=== PATIENT | male | born 1945 | race Caucasian/White ===

== ENCOUNTER 2021-01-18 08:39 | Outpatient (CLI) | payer MEDICARE, OTHER ==
[2021-01-12 16:58] LABS: ALBUMIN 3.5 G/DL (3.4-5.0); ANION GAP 11 (8-16); BLOOD UREA NITROGEN 24 MG/DL (7-18); BUN/CREATININE RATIO 20.7 (5.4-32.0); CALCIUM 9.1 MG/DL (8.5-10.1); CHLORIDE 101 MMOL/L (99-107); CREATININE 1.16 MG/DL (0.60-1.10); GLUCOSE 98 MG/DL (70-104); POTASSIUM 4.2 MMOL/L (3.5-5.1); SODIUM 141 MMOL/L (135-145); TOTAL CARBON DIOXIDE 29.2 MMOL/L (24-32); eGFR 62 ML/MIN
[2021-01-12 17:12] LABS: HEMOGLOBIN 13.9 g/dl (14.0-17.9); NEUTROPHILS # (AUTO) 5.1 X10'3 (1.8-7.7)
[2021-01-12 17:14] LABS: BASOPHILS % (AUTO) 0.5 % (0-1); EOSINOPHILS # (AUTO) 0.4 X10'3 (0-0.9); EOSINOPHILS % (AUTO) 5.7 % (0-6); HEMATOCRIT 41.6 % (42.0-52.0); LYMPHOCYTES # (AUTO) 1.3 X10'3 (1.1-4.8); MEAN CORPUSCULAR HEMOGLOBIN 30.8 PG (27.0-31.0); MEAN CORPUSCULAR HGB CONC 33.5 g/dL (33.0-36.5); MEAN CORPUSCULAR VOLUME 92.1 FL (78-98); MEAN PLATELET VOLUME 7.9 FL (7.4-10.4); MONOCYTES # (AUTO) 0.6 X10'3 (0-0.9); MONOCYTES % (AUTO) 7.6 % (2-12); NEUTROPHILS % (AUTO) 68.2 % (42-75); PLATELET COUNT 213 X10'3 (140-440); RED BLOOD COUNT 4.52 X10'6 (4.70-6.10); RED CELL DISTRIBUTION WIDTH 15.9 % (11.5-14.5); WHITE BLOOD COUNT 7.5 X10'3 (4.5-11.0)
[~2021-01-18] VITALS: Ht 167.6 cm; Wt 70.3 kg
[2021-01-18] MEDS ORDERED: iohexol 350 MG/ML 50ML vial IV ONE (09:05)
[2021-01-18] MEDS ORDERED: iohexol 350MG/ML 100ml bottle IV ONE (09:06)
== END 2021-01-18 23:59 | disposition home or self-care (01) ==
LOC: 64 CT 08:39
PROVIDERS: ATTEND Family Medicine
DX: I77.1 Stricture of artery (principal); N40.0 Benign prostatic hyperplasia without lower urinary tract symptoms; I77.819 Aortic ectasia, unspecified site; I70.0 Atherosclerosis of aorta; I70.202 Unspecified atherosclerosis of native arteries of extremities, left leg; M47.816 Spondylosis without myelopathy or radiculopathy, lumbar region
CPT/HCPCS: 36415; 73706; 80048; 85025; 85651; 86332; Q9967

== ENCOUNTER 2021-03-23 06:56 | Inpatient (IN) | payer MEDICARE, OTHER ==
[2021-03-22 09:19] LABS: BASOPHILS # (AUTO) 0.1 X10'3 (0-0.2); BASOPHILS % (AUTO) 1.6 % (0-1); EOSINOPHILS # (AUTO) 0.3 X10'3 (0-0.9); EOSINOPHILS % (AUTO) 5.7 % (0-6); HEMATOCRIT 40.7 % (42.0-52.0); HEMOGLOBIN 14.2 g/dl (14.0-17.9); LYMPHOCYTES # (AUTO) 1.3 X10'3 (1.1-4.8); LYMPHOCYTES % (AUTO) 22.5 % (21-51); MEAN CORPUSCULAR HEMOGLOBIN 31.5 PG (27.0-31.0); MEAN PLATELET VOLUME 7.3 FL (7.4-10.4); MONOCYTES # (AUTO) 0.5 X10'3 (0-0.9); MONOCYTES % (AUTO) 8.8 % (2-12); NEUTROPHILS # (AUTO) 3.5 X10'3 (1.8-7.7); NEUTROPHILS % (AUTO) 61.4 % (42-75); PLATELET COUNT 280 X10'3 (140-440); RED BLOOD COUNT 4.52 X10'6 (4.70-6.10); RED CELL DISTRIBUTION WIDTH 15.4 % (11.5-14.5); WHITE BLOOD COUNT 5.8 X10'3 (4.5-11.0)
[2021-03-22 09:22] LABS: ALBUMIN 3.4 G/DL (3.4-5.0); ANION GAP 7 (8-16); BLOOD UREA NITROGEN 20 MG/DL (7-18); BUN/CREATININE RATIO 14.6 (5.4-32.0); CALCIUM 9.3 MG/DL (8.5-10.1); CHLORIDE 102 MMOL/L (99-107); CREATININE 1.37 MG/DL (0.60-1.10); GLUCOSE 87 MG/DL (70-104); SODIUM 141 MMOL/L (135-145); TOTAL CARBON DIOXIDE 32.3 MMOL/L (24-32); eGFR 51 ML/MIN
[2021-03-22 09:24] LABS: PARTIAL THROMBOPLASTIN TIME 30 SECONDS (22-32)
[~2021-03-23] VITALS: Ht 170.2 cm; Wt 69.6 kg
[2021-03-23] VITALS (12 sets, daily range): BP systolic 101–142; BP diastolic 49–91
[2021-03-23] MEDS ORDERED: nitroGLYCERIN 0.4mg SUBLingual tab SL PRN ×2 (07:35→14:05)
[2021-03-23] MEDS ORDERED: LORazepam 0.5 MG tablet PO PRN (07:40)
[2021-03-23] MEDS ORDERED: diphenhydrAMINE 25mg capsule PO PRN ×2 (07:40→11:30)
[2021-03-23] MEDS ORDERED: sodium bicarbonate (8.4%) inj. 150 ML in dextrose 5%-water 1,000 ML IV ONE (07:40)
[2021-03-23] MEDS ORDERED: LIDOcaine/PRILOcaine 5gm cream TP ONE (07:40)
[2021-03-23] MEDS ORDERED: HYDR12.55 PO (07:44)
[2021-03-23] MEDS ORDERED: NITR0.4T48 (07:44)
[2021-03-23] MEDS ORDERED: MELA10TA PO (07:44)
[2021-03-23] MEDS ORDERED: FEXO-25 PO (07:44)
[2021-03-23] MEDS ORDERED: BUPR300T86 PO (07:44)
[2021-03-23] MEDS ORDERED: HYDR-3964 PO (07:44)
[2021-03-23] MEDS ORDERED: ASPI-10 PO (07:44)
[2021-03-23] MEDS ORDERED: FLO0.4C PO (07:44)
[2021-03-23] MEDS ORDERED: ATOR-2 PO (07:44)
[2021-03-23] MEDS: acetylcysteine 200 MG/ml 4ml vial PO SCH ×2 (08:14→20:00)
[2021-03-23] MEDS: normal saline 1,000 ML IV SCH ×3 (08:19→16:26)
[2021-03-23] MEDS ORDERED: verapamil 2.5 mg/ml inj IV ONE (09:10)
[2021-03-23] MEDS ORDERED: nitroGLYCERIN-Tridil 50MG/D5W 250 ML IV ONE (09:10)
[2021-03-23] MEDS ORDERED: iohexol 350 MG/ML 50ML vial IV ONE (09:10)
[2021-03-23] MEDS ORDERED: midazolam 1 mg/ML 2ml injection ONE (09:10)
[2021-03-23] MEDS ORDERED: fentaNYL/PF 50MCG/1 ML 2ML syringe ONE (09:10)
[2021-03-23] MEDS ORDERED: heparin 1,000unit/ml 10ml vial 10 ML ONE (09:10)
[2021-03-23] MEDS ORDERED: iohexol 350MG/ML 100ml bottle IV ONE (09:10)
[2021-03-23] MEDS ORDERED: LIDOcaine 1% (10mg/ml)w/preservative injection 20ml MDV ONE (09:11)
[2021-03-23] MEDS: sodium bicarbonate (8.4%) inj. 50 MEQ in dextrose 5%-water 1,000 ML IV SCH ×2 (10:55→16:27)
[2021-03-23 10:56] LABS: ISTAT Hct MIX 35 %PCV (42-52); ISTAT O2 SATURATION MIX VENOUS 67 % (60-80); ISTAT SOURCE VEN
[2021-03-23] MEDS ORDERED: potassium CL 10mEq/100ml bag 100 ML IV PRN (11:30)
[2021-03-23] MEDS ORDERED: potassium Cl 20mEq/100mL bag 100 ML IV PRN (11:30)
[2021-03-23] MEDS ORDERED: ondansetron 4mg rapidly disintigrating tab PO PRN (11:30)
[2021-03-23] MEDS ORDERED: potassium Cl 40MEQ/1/2NS 520ml 520 ML IV PRN (11:30)
[2021-03-23] MEDS ORDERED: potassium Cl 20 mEq SR tablet PO PRN (11:30)
[2021-03-23] MEDS ORDERED: magnesium 2GM in 50ml NS 50 ML IV PRN (11:30)
[2021-03-23] MEDS ORDERED: magnesium 4gm in 100ml NS 100 ML IV PRN (11:30)
[2021-03-23] MEDS ORDERED: potassium Cl 40MEQ/250ML bag 250 ML IV PRN (11:30)
[2021-03-23] MEDS ORDERED: MESSAGE TO NURSING PO ONE ×5 (11:30→16:55)
[2021-03-23] MEDS ORDERED: HYDROcodone/acetaminophen 5mg/325mg tablet PO PRN (14:05)
[2021-03-23] MEDS ORDERED: NITR0.4T51 SL (14:06)
[2021-03-23 14:52] LABS: ISTAT HGB ART 13.6 g/dl (14.0-18.0); ISTAT Hct ART 40 %PCV (42-52); ISTAT O2 SATURATION ARTERIAL 87 % (95-98); ISTAT SOURCE ART
--- NOTE | 2021-03-23 16:00 | NUR ---
Patient in room PCU 3020. I have received report from Elaina ARCE and had the opportunity to ask questions and assume patient care.
[2021-03-23 16:49] LABS: BASOPHILS % (AUTO) 0.6 % (0-1); EOSINOPHILS # (AUTO) 0.4 X10'3 (0-0.9); EOSINOPHILS % (AUTO) 5.9 % (0-6); HEMATOCRIT 37.6 % (42.0-52.0); HEMOGLOBIN 12.6 g/dl (14.0-17.9); LYMPHOCYTES # (AUTO) 1.4 X10'3 (1.1-4.8); LYMPHOCYTES % (AUTO) 21.6 % (21-51); MEAN CORPUSCULAR HEMOGLOBIN 30.3 PG (27.0-31.0); MEAN CORPUSCULAR HGB CONC 33.6 g/dL (33.0-36.5); MEAN CORPUSCULAR VOLUME 90.3 FL (78-98); MEAN PLATELET VOLUME 7.5 FL (7.4-10.4); MONOCYTES # (AUTO) 0.7 X10'3 (0-0.9); MONOCYTES % (AUTO) 11.3 % (2-12); NEUTROPHILS # (AUTO) 3.9 X10'3 (1.8-7.7); NEUTROPHILS % (AUTO) 60.6 % (42-75); PLATELET COUNT 244 X10'3 (140-440); RED BLOOD COUNT 4.16 X10'6 (4.70-6.10); RED CELL DISTRIBUTION WIDTH 15.5 % (11.5-14.5); WHITE BLOOD COUNT 6.4 X10'3 (4.5-11.0)
[2021-03-23] MEDS ORDERED: Insulin Reg/NS 100units/100mL 100 ML IV SCH ×2 (16:55→17:01)
[2021-03-23] MEDS ORDERED: insulin glargine (Lantus) pen - multi-dose SQ PRN (16:55)
[2021-03-23] MEDS ORDERED: dextrose 50%-water 50ml dispensing syringe IV PRN (16:55)
[2021-03-23 16:58] LABS: ALBUMIN 2.8 G/DL (3.4-5.0); ANION GAP 7 (8-16); BLOOD UREA NITROGEN 21 MG/DL (7-18); BUN/CREATININE RATIO 17.1 (5.4-32.0); CALCIUM 8.5 MG/DL (8.5-10.1); CHLORIDE 101 MMOL/L (99-107); CREATININE 1.23 MG/DL (0.60-1.10); GLUCOSE 97 MG/DL (70-104); MAGNESIUM 2.3 MG/DL (1.5-2.4); POTASSIUM 3.6 MMOL/L (3.5-5.1); SODIUM 140 MMOL/L (135-145); TOTAL CARBON DIOXIDE 31.6 MMOL/L (24-32); eGFR 58 ML/MIN
[2021-03-23 17:02] LABS: PARTIAL THROMBOPLASTIN TIME 27 SECONDS (22-32)
[2021-03-23 17:05] LABS: HEMOGLOBIN A1C 5.6 % (4.5-6.2)
[2021-03-23] MEDS ORDERED: ALBUTEROL INHALER 1 PUFF/90 MCG INHALER IH PRN (17:10)
[2021-03-23] MEDS ORDERED: ringers solution, lacted 1,000 ML IV ONE (17:10)
--- NOTE | 2021-03-23 17:19 | NUR ---
Paged Respiratory PCU rm 3020, Daron Murrieta Cardiac Surgeon would like Respiratory to give Albuterol now and in the am at 0700 prior to surgery. Also during the night as needed. Deanna ARCE [phone]
--- NOTE | 2021-03-23 17:44 | NUR ---
PFT being completed now.
[2021-03-23] MEDS ORDERED: albuterol 2.5 MG/3 ML nebule NEB ONE ×2 (17:50→21:30)
--- NOTE | 2021-03-23 18:00 | NUR ---
Paged Resp. [facility] rm [id number] Vidal wants patient to have albuterol neb treatment now. Thank you Deanna ARCE [phone]
[2021-03-23 18:01] LABS: ABG BASE EXCESS 7.2 mmol/L (-2.0-2.0); ABG HCO3 31.9 mmol/L (22.0-26.0); ABG OXYGEN SATURATION 94.1 % (94-97); ABG PCO2 (T) 45.3 mmHg (35.0-48.0); ABG PO2 (T) 66.3 mmHg (75.0-100.0); ALLEN'S TEST POSITIVE; FCOHb 1.7 % (0.0-3.9); FLOW 3 L/min; FMetHb 0.2 % (0.0-1.5); FO2Hb 92.3 % (94-97); TOTAL HEMOGLOBIN 13.4 G/dl (14.0-18.0)
--- NOTE | 2021-03-23 18:20 | NUR ---
Problems reprioritized. Patient report given, questions answered & plan of care reviewed with Linette ARCE.
[2021-03-23] MEDS ORDERED: mupirocin 2% nasal ointment 1gm UD NS SCH (20:00)
[2021-03-23] MEDS ORDERED: sod chloride 0.9% 10ml flush syringe IV SCH (20:00)
[2021-03-23] MEDS: sod chloride 0.9% 10ml flush syringe IV SCH (20:00)
[2021-03-23] MEDS ORDERED: [UNRECOGNIZED DRUG - REMARK] PO SCH (20:00)
[2021-03-23] MEDS: tamsulosin 0.4mg capsule PO SCH (21:27)
[2021-03-23] MEDS: atorvastatin 10mg tablet PO SCH (21:27)
[2021-03-23] MEDS: Melatonin 3mg tablet PO SCH (21:28)
[2021-03-23] MEDS: metoprolol tartrate 12.5mg (1/2 tablet) PO SCH (21:28)
[2021-03-24] VITALS (19 sets, daily range): BP systolic 105–130; BP diastolic 47–90
[2021-03-24] MEDS: sodium bicarbonate (8.4%) inj. 50 MEQ in dextrose 5%-water 1,000 ML IV SCH ×4 (00:55→21:55)
[2021-03-24] MEDS ORDERED: MALTODEXTRIN/FRUCTOSE 0.68 KCAL/ML LIQUID 296ML BOTTLE PO ONE (05:00)
[2021-03-24] MEDS ORDERED: vancomycin/NS 1 GM ADD-VANTAGE 250 ML IV ONE (05:30)
[2021-03-24] MEDS: Insulin Reg/NS 100units/100mL 100 ML IV SCH ×2 (05:30→12:08)
[2021-03-24] MEDS ORDERED: gabapentin 400mg capsule PO ONE (05:30)
[2021-03-24] MEDS ORDERED: cefazolin/dext.iso 2gm/50ml 50 ML IV ONE (05:30)
[2021-03-24] MEDS ORDERED: epiNEPHrine 1 mg/ml inj ONE (05:31)
[2021-03-24] MEDS ORDERED: BUPIVAcaine 0.5% inj/PF 30 ML ONE (05:32)
[2021-03-24] MEDS ORDERED: ceFAZolin 1000mg inj ONE (05:32)
[2021-03-24] MEDS ORDERED: LIDOcaine 1% (10mg/ml) 2ml vial ONE (05:33)
[2021-03-24] MEDS ORDERED: famotidine 20mg tablet PO ONE (06:00)
[2021-03-24] MEDS ORDERED: LORazepam 2 mg/ml vial IV ONE (06:00)
--- NOTE | 2021-03-24 06:05 | NUR ---
Patient in room PCU 3020. I have received report from Linette ARCE and had the opportunity to ask questions and assume patient care.
--- NOTE | 2021-03-24 06:06 | NUR ---
Problems reprioritized. Patient report given, questions answered & plan of care reviewed with CLAUDE Wesley.
[2021-03-24] MEDS ORDERED: NORepinephrine 8 MG in NS 250 ML BAG (32 mcg/ml) IV ONE (07:00)
[2021-03-24] MEDS ORDERED: sodium bicarbonate (8.4%) inj. 1 MEQ/ML ML ONE (07:00)
[2021-03-24] MEDS ORDERED: aminocaproic acid 250 MG/1 ML inj. ONE (07:00)
[2021-03-24] MEDS ORDERED: phenylephrine 10mg/ml inj. ONE ×2 (07:00→08:11)
[2021-03-24] MEDS ORDERED: calcium chloride 100 MG/1 ML inj IV ONE (07:00)
[2021-03-24] MEDS ORDERED: heparin 10,000 units/1 ML INJ ONE (07:00)
[2021-03-24] MEDS ORDERED: methylPREDNISolone sod succ 1000mg vial ONE (07:00)
[2021-03-24] MEDS ORDERED: albumin (human) 25% 100 ML IV solution IV ONE (07:00)
--- NOTE | 2021-03-24 07:15 | NUR ---
Pt taken down to CVOR by OR team by bed.
[2021-03-24] MEDS ORDERED: isoflurane 100ml inhalation liquid IH ONE (07:17)
[2021-03-24] MEDS ORDERED: DOPamine/D5W 400mg/250ml bag IV ONE (07:17)
[2021-03-24] MEDS ORDERED: SUFENTANIL CITRATE 50 MCG/ML 2ml ampule IV ONE (07:30)
[2021-03-24] MEDS ORDERED: LORazepam 2 mg/ml vial ONE (07:31)
[2021-03-24] MEDS ORDERED: rocuronium 10mg/ml inj IV ONE (07:55)
[2021-03-24] MEDS ORDERED: propofol inj 20 ML IV ONE (07:55)
[2021-03-24] MEDS ORDERED: LIDOcaine 2% (20mg/ml) 5ml vial ONE (07:55)
[2021-03-24] MEDS: buPROPion SR 150mg tablet PO SCH ×2 (08:00→20:00)
[2021-03-24] MEDS: metoprolol tartrate 12.5mg (1/2 tablet) PO SCH ×2 (08:00→20:00)
[2021-03-24] MEDS: HYDROchlorothiazide 12.5mg capsule PO SCH (08:00)
[2021-03-24] MEDS: aspirin 325mg tablet PO SCH (08:00)
[2021-03-24] MEDS: acetylcysteine 200 MG/ml 4ml vial PO SCH ×2 (08:00→20:00)
[2021-03-24] MEDS ORDERED: non-formulary drug (Atorvastatin Calcium 1 TAB) PO SCH (08:00)
[2021-03-24] MEDS: sod chloride 0.9% 10ml flush syringe IV SCH ×2 (08:00→20:10)
[2021-03-24 08:13] LABS: ACT @ 1.70 U 307 SEC (193-297); ACT @ 2.84 U 414 SEC (260-420); BASELINE ACT 145 SEC (101-148); PATIENT WEIGHT 67.8k KG
[2021-03-24 08:15] LABS: ABG BASE EXCESS 2.6 mmol/L (-2.0-2.0); ABG HCO3 28.7 mmol/L (22.0-26.0); ABG OXYGEN SATURATION 99.2 % (94-97); ABG PCO2 (T) 50.8 mmHg (35.0-48.0); FCOHb 0.1 % (0.0-3.9); FMetHb 0.3 % (0.0-1.5); FO2Hb 98.8 % (94-97)
[2021-03-24] MEDS ORDERED: papaverine 30 mg/ml 2ml inj. IA ONE (08:25)
[2021-03-24] MEDS ORDERED: heparin 10,000 units/1 ML INJ IR ONE (08:26)
[2021-03-24 08:59] LABS: ABG HCO3 29.7 mmol/L (22.0-26.0); ABG PCO2 39.7 mmHg (35.0-48.0); ABG PO2 367.6 mmHg (75.0-100.0); CL (ABG) 100 mmol/L (98-110); GLUCOSE (ABG) 91 mg/dl (70-105); IONIZED CA (ABG) 0.97 mmol/L (1.10-1.43); K (ABG) 4.1 mmol/L (3.5-5.0)
[2021-03-24] MEDS ORDERED: ipratropium/albuterol 3ml nebule IH PRN (09:00)
[2021-03-24] MEDS ORDERED: CISatracurium **Bolus** 2 mg/ml inj IV ONE (09:10)
[2021-03-24 09:48] LABS: ACTIVATED CLOTTING TIME 113 SEC (101-148)
[2021-03-24] MEDS ORDERED: potassium Cl 40MEQ/250ML bag 250 ML IV PRN (09:50)
[2021-03-24] MEDS ORDERED: sodium phosphate inj. 15 MMOL in dextrose 5%-water 250 ML IV PRN (09:50)
[2021-03-24] MEDS ORDERED: niCARDipine-NS 40mg/200ml IVPB 200 ML IV PRN (09:50)
[2021-03-24] MEDS ORDERED: acetaminophen 325mg tablet PO PRN ×2 (09:50)
[2021-03-24] MEDS ORDERED: dextrose 50%-water 50ml dispensing syringe IV PRN (09:50)
[2021-03-24] MEDS ORDERED: potassium Cl 40MEQ/1/2NS 520ml 520 ML IV PRN (09:50)
[2021-03-24] MEDS ORDERED: nitroGLYCERIN-Tridil 50MG/D5W 250 ML IV SCH (09:50)
[2021-03-24] MEDS: sodium chloride 0.45% 1,000 ML IV SCH (09:50)
[2021-03-24] MEDS ORDERED: Insulin Reg/NS 100units/100mL 100 ML IV SCH (09:50)
[2021-03-24] MEDS ORDERED: potassium CL 10mEq/100ml bag 100 ML IV PRN (09:50)
[2021-03-24] MEDS ORDERED: insulin glargine (Lantus) pen - multi-dose SQ PRN (09:50)
[2021-03-24] MEDS ORDERED: pantoprazole 40 MG vial IV ONE (09:50)
[2021-03-24] MEDS ORDERED: metoclopramide 5 mg/ml inj IV PRN (09:50)
[2021-03-24] MEDS ORDERED: NORepinephrine 8mg/ 250ml NS 250 ML IV PRN (09:50)
[2021-03-24] MEDS ORDERED: mineral oil 133ml enema RC PRN (09:50)
[2021-03-24] MEDS ORDERED: magnesium 2GM in 50ml NS 50 ML IV PRN (09:50)
[2021-03-24] MEDS ORDERED: magnesium hydroxide 30ml (MOM) UD suspension PO PRN (09:50)
[2021-03-24] MEDS ORDERED: bisacodyl 10mg suppository rectal RC PRN (09:50)
[2021-03-24] MEDS ORDERED: sodium phosphate inj. 30 MMOL in dextrose 5%-water 250 ML IV PRN (09:50)
[2021-03-24] MEDS ORDERED: ondansetron/PF 4mg/2ml inj IV PRN (09:50)
[2021-03-24] MEDS ORDERED: magnesium 4gm in 100ml NS 100 ML IV PRN (09:50)
[2021-03-24] MEDS ORDERED: potassium Cl 20 mEq SR tablet PO PRN (09:50)
[2021-03-24] MEDS ORDERED: magnesium citrate 296ml oral solution PO PRN (09:50)
[2021-03-24] MEDS ORDERED: Neutra Phos packet PO PRN (09:50)
[2021-03-24] MEDS ORDERED: MESSAGE TO NURSING PO ONE (10:00)
[2021-03-24] MEDS: DOBUTamine-DoBUTrex 500mg/D5W 250 ML IV SCH (10:10)
--- NOTE | 2021-03-24 10:10 | NUR ---
Received to room 2041, accompanied by MDs and surgical crew. Placed on ventilator, to property assessment monitor, arterial line and PA line pressure monitored. Chest tubes to suction at 20 cm. Lopez cath to gravity drainage. Dressings are dry and intact. See assessment record. All vasoactive drugs are infusing via central line.
--- NOTE | 2021-03-24 10:22 | NUR ---
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 Will continue to follow. Addendum: 03/24/21 at [address] Amended: Links added.
[2021-03-24 10:40] LABS: BASOPHILS # (AUTO) 0.1 X10'3 (0-0.2); BASOPHILS % (AUTO) 0.6 % (0-1); EOSINOPHILS # (AUTO) 0.2 X10'3 (0-0.9); EOSINOPHILS % (AUTO) 2.2 % (0-6); HEMATOCRIT 31.9 % (42.0-52.0); LYMPHOCYTES # (AUTO) 0.7 X10'3 (1.1-4.8); MEAN CORPUSCULAR HEMOGLOBIN 30.8 PG (27.0-31.0); MEAN CORPUSCULAR HGB CONC 34.6 g/dL (33.0-36.5); MEAN CORPUSCULAR VOLUME 89.1 FL (78-98); MEAN PLATELET VOLUME 7.3 FL (7.4-10.4); MONOCYTES # (AUTO) 0.4 X10'3 (0-0.9); MONOCYTES % (AUTO) 4.6 % (2-12); NEUTROPHILS % (AUTO) 85.6 % (42-75); PLATELET COUNT 170 X10'3 (140-440); RED BLOOD COUNT 3.58 X10'6 (4.70-6.10); RED CELL DISTRIBUTION WIDTH 15.2 % (11.5-14.5); WHITE BLOOD COUNT 9.3 X10'3 (4.5-11.0)
[2021-03-24 10:49] LABS: ALANINE AMINOTRANSFERASE 16 U/L (12-78); ALBUMIN 2.7 G/DL (3.4-5.0); ALBUMIN/GLOBULIN RATIO 0.8 (1.1-1.5); ALKALINE PHOSPHATASE 58 IU/L (46-116); ANION GAP 6 (8-16); ASPARTATE AMINO TRANSFERASE 20 U/L (10-37); BILIRUBIN,TOTAL 0.7 MG/DL (0.1-1.0); BLOOD UREA NITROGEN 19 MG/DL (7-18); CALCIUM 8.4 MG/DL (8.5-10.1); CHLORIDE 106 MMOL/L (99-107); GLUCOSE 113 MG/DL (70-104); PHOSPHORUS 2.5 MG/DL (2.3-4.5); POTASSIUM 3.7 MMOL/L (3.5-5.1); SODIUM 140 MMOL/L (135-145); TOTAL CARBON DIOXIDE 27.7 MMOL/L (24-32); TOTAL PROTEIN 5.9 G/DL (6.4-8.2); eGFR 73 ML/MIN
[2021-03-24 11:09] LABS: ABG BASE EXCESS 0.6 mmol/L (-2.0-2.0); ABG HCO3 25.6 mmol/L (22.0-26.0); ABG OXYGEN SATURATION 97.9 % (94-97); ABG PCO2 (T) 41.9 mmHg (35.0-48.0); ABG PO2 (T) 125.5 mmHg (75.0-100.0); FCOHb 0.5 % (0.0-3.9); FMetHb 0.1 % (0.0-1.5); FO2Hb 97.3 % (94-97); PATIENT TEMPERATURE 36.5; PEEP 5 cm H2O; RESPIRATORY RATE 12 b/min; TIDAL VOLUME 700 mL; TOTAL HEMOGLOBIN 11.8 G/dl (14.0-18.0)
[2021-03-24] MEDS: potassium Cl 20mEq/100mL bag 100 ML IV PRN ×3 (11:11→17:43)
[2021-03-24 11:26] LABS: PARTIAL THROMBOPLASTIN TIME 27 SECONDS (22-32)
[2021-03-24] MEDS: gabapentin 300mg capsule PO SCH ×2 (12:20→20:54)
[2021-03-24] MEDS: albumin (Human) 5% 250ml 250 ML IV PRN ×3 (12:21→15:18)
[2021-03-24] MEDS: ceFAZolin/D5W- 1GM premix 50 ML IV SCH (15:18)
[2021-03-24 15:59] LABS: ABG BASE EXCESS -2.8 mmol/L (-2.0-2.0); ABG HCO3 22.7 mmol/L (22.0-26.0); ABG OXYGEN SATURATION 93.5 % (94-97); ABG PCO2 (T) 41.2 mmHg (35.0-48.0); ABG PO2 (T) 74.1 mmHg (75.0-100.0); FMetHb 0.2 % (0.0-1.5); FO2Hb 93.3 % (94-97); PATIENT TEMPERATURE 36.4; PEEP 5 cm H2O; TOTAL HEMOGLOBIN 11.3 G/dl (14.0-18.0)
[2021-03-24 16:35] LABS: ALBUMIN 3.4 G/DL (3.4-5.0); ANION GAP 9 (8-16); BASOPHILS % (AUTO) 0.2 % (0-1); BLOOD UREA NITROGEN 17 MG/DL (7-18); BUN/CREATININE RATIO 14.5 (5.4-32.0); CALCIUM 7.9 MG/DL (8.5-10.1); CHLORIDE 110 MMOL/L (99-107); CREATININE 1.17 MG/DL (0.60-1.10); EOSINOPHILS % (AUTO) 0.1 % (0-6); GLUCOSE 95 MG/DL (70-104); HEMATOCRIT 31.3 % (42.0-52.0); HEMOGLOBIN 10.6 g/dl (14.0-17.9); LYMPHOCYTES # (AUTO) 0.2 X10'3 (1.1-4.8); LYMPHOCYTES % (AUTO) 2.4 % (21-51); MEAN CORPUSCULAR HEMOGLOBIN 30.7 PG (27.0-31.0); MEAN CORPUSCULAR HGB CONC 33.7 g/dL (33.0-36.5); MEAN CORPUSCULAR VOLUME 91.1 FL (78-98); MONOCYTES # (AUTO) 0.3 X10'3 (0-0.9); MONOCYTES % (AUTO) 3.2 % (2-12); NEUTROPHILS # (AUTO) 9.2 X10'3 (1.8-7.7); NEUTROPHILS % (AUTO) 94.1 % (42-75); PHOSPHORUS 2.3 MG/DL (2.3-4.5); PLATELET COUNT 150 X10'3 (140-440); RED BLOOD COUNT 3.43 X10'6 (4.70-6.10); RED CELL DISTRIBUTION WIDTH 15.2 % (11.5-14.5); SODIUM 144 MMOL/L (135-145); TOTAL CARBON DIOXIDE 24.8 MMOL/L (24-32); WHITE BLOOD COUNT 9.7 X10'3 (4.5-11.0); eGFR 61 ML/MIN
[2021-03-24 16:36] LABS: POTASSIUM 4.3 MMOL/L (3.5-5.1)
[2021-03-24] MEDS: morphine 4 MG/ML inj SYRINge IV PRN ×3 (17:43→22:35)
--- NOTE | 2021-03-24 18:30 | NUR ---
Dr. Townsend at bedside, placed oral airway. Pt somnolent with obstructive apnea, wakes and answers questions appropriately but immediately falls back asleep.
[2021-03-24] MEDS: ipratropium/albuterol 3ml nebule NEB SCH ×2 (19:15→23:04)
[2021-03-24] MEDS ORDERED: acetaminophen 1,000mg/100ml IV 100 ML IV PRN (19:40)
[2021-03-24] MEDS: sennosides/docusate sodium tablet PO SCH (20:00)
[2021-03-24] MEDS: vancomycin/NS 1 GM ADD-VANTAGE 250 ML IV SCH (20:09)
--- NOTE | 2021-03-24 20:31 | NUR ---
A-line DC'd, positional and not drawing
[2021-03-24] MEDS: atorvastatin 10mg tablet PO SCH (20:54)
[2021-03-24] MEDS: tamsulosin 0.4mg capsule PO SCH (20:54)
[2021-03-24] MEDS: Melatonin 3mg tablet PO SCH (20:54)
[2021-03-24] MEDS: mupirocin 2% nasal ointment 1gm UD NS SCH (20:56)
[2021-03-24] MEDS ORDERED: atorvastatin 10mg tablet PO SCH (21:00)
[2021-03-25] VITALS (23 sets, daily range): BP systolic 90–140; BP diastolic 43–80
[2021-03-25] MEDS: ceFAZolin/D5W- 1GM premix 50 ML IV SCH ×4 (00:43→23:12)
[2021-03-25 01:40] LABS: BASOPHILS % (AUTO) 0.1 % (0-1); EOSINOPHILS % (AUTO) 0 % (0-6); HEMATOCRIT 32.3 % (42.0-52.0); LYMPHOCYTES # (AUTO) 0.4 X10'3 (1.1-4.8); LYMPHOCYTES % (AUTO) 3.3 % (21-51); MEAN CORPUSCULAR VOLUME 91.3 FL (78-98); MEAN PLATELET VOLUME 7.8 FL (7.4-10.4); MONOCYTES # (AUTO) 0.6 X10'3 (0-0.9); MONOCYTES % (AUTO) 5.5 % (2-12); NEUTROPHILS # (AUTO) 9.7 X10'3 (1.8-7.7); NEUTROPHILS % (AUTO) 91.1 % (42-75); PLATELET COUNT 146 X10'3 (140-440); RED BLOOD COUNT 3.54 X10'6 (4.70-6.10); RED CELL DISTRIBUTION WIDTH 15.4 % (11.5-14.5); WHITE BLOOD COUNT 10.7 X10'3 (4.5-11.0)
[2021-03-25 01:55] LABS: ALANINE AMINOTRANSFERASE 14 U/L (12-78); ALBUMIN 3.3 G/DL (3.4-5.0); ALKALINE PHOSPHATASE 66 IU/L (46-116); ANION GAP 7 (8-16); ASPARTATE AMINO TRANSFERASE 42 U/L (10-37); BILIRUBIN,TOTAL 0.7 MG/DL (0.1-1.0); BLOOD UREA NITROGEN 16 MG/DL (7-18); BUN/CREATININE RATIO 14.2 (5.4-32.0); CALCIUM 8.5 MG/DL (8.5-10.1); CHLORIDE 110 MMOL/L (99-107); CREATININE 1.13 MG/DL (0.60-1.10); GLUCOSE 116 MG/DL (70-104); MAGNESIUM 2.5 MG/DL (1.5-2.4); PHOSPHORUS 3.9 MG/DL (2.3-4.5); POTASSIUM 4.5 MMOL/L (3.5-5.1); SODIUM 143 MMOL/L (135-145); TOTAL CARBON DIOXIDE 26.5 MMOL/L (24-32); TOTAL PROTEIN 6.6 G/DL (6.4-8.2); eGFR 63 ML/MIN
[2021-03-25] MEDS: morphine 4 MG/ML inj SYRINge IV PRN ×4 (02:22→22:57)
[2021-03-25] MEDS: ipratropium/albuterol 3ml nebule NEB SCH ×3 (03:54→11:00)
[2021-03-25] MEDS: sodium bicarbonate (8.4%) inj. 50 MEQ in dextrose 5%-water 1,000 ML IV SCH ×2 (04:55→11:42)
[2021-03-25] MEDS: HYDROcodone/acetaminophen 10/325mg tab PO PRN ×4 (06:41→20:12)
[2021-03-25] MEDS ORDERED: ibuprofen tablet 400 MG TABLET PO PRN (07:40)
[2021-03-25] MEDS: normal saline 1,000 ML IV SCH (07:40)
[2021-03-25] MEDS: acetylcysteine 200 MG/ml 4ml vial PO SCH (07:41)
[2021-03-25] MEDS: metoprolol tartrate 12.5mg (1/2 tablet) PO SCH ×2 (07:47→20:15)
[2021-03-25] MEDS: mupirocin 2% nasal ointment 1gm UD NS SCH ×2 (07:47→20:00)
[2021-03-25] MEDS: gabapentin 300mg capsule PO SCH ×3 (07:47→20:13)
[2021-03-25] MEDS: vancomycin/NS 1 GM ADD-VANTAGE 250 ML IV SCH ×2 (07:47→19:59)
[2021-03-25] MEDS: aspirin 325mg tablet PO SCH (07:47)
[2021-03-25] MEDS: sennosides/docusate sodium tablet PO SCH ×2 (07:48→20:13)
[2021-03-25] MEDS: pantoprazole 40mg Tablet.DR PO SCH (07:48)
[2021-03-25] MEDS: buPROPion SR 150mg tablet PO SCH ×2 (07:48→20:13)
[2021-03-25] MEDS: sod chloride 0.9% 10ml flush syringe IV SCH (07:57)
[2021-03-25] MEDS ORDERED: aspirin 325mg tablet, delayed-release (Ecotrin) PO SCH (08:00)
[2021-03-25] MEDS ORDERED: metoprolol tartrate 12.5mg (1/2 tablet) PO SCH (08:00)
--- NOTE | 2021-03-25 08:00 | NUR ---
O2 saturation in the low 90s, Ousmane OHARA aware, patient with hx of COPD, continue pulmonary toilet.
[2021-03-25] MEDS: HYDROchlorothiazide 12.5mg capsule PO SCH (11:18)
[2021-03-25] MEDS ORDERED: ipratropium/albuterol 3ml nebule NEB PRN (13:20)
[2021-03-25] MEDS: Insulin Reg/NS 100units/100mL 100 ML IV SCH (13:46)
--- NOTE | 2021-03-25 15:09 | NUR ---
Decreased urine output noted; Ousmane OHARA notified; no new orders at this time. Encourage PO fluid intake.
--- NOTE | 2021-03-25 18:36 | NUR ---
Problems reprioritized. Patient report given, questions answered & plan of care reviewed with Lorelei RN.
[2021-03-25] MEDS: atorvastatin 10mg tablet PO SCH (20:11)
[2021-03-25] MEDS: tamsulosin 0.4mg capsule PO SCH (20:13)
[2021-03-25] MEDS: Melatonin 3mg tablet PO SCH (20:14)
[2021-03-26] VITALS (23 sets, daily range): BP systolic 93–140; BP diastolic 44–73
[2021-03-26 03:52] LABS: BASOPHILS % (AUTO) 0.1 % (0-1); EOSINOPHILS % (AUTO) 0 % (0-6); HEMOGLOBIN 10.6 g/dl (14.0-17.9); LYMPHOCYTES # (AUTO) 0.3 X10'3 (1.1-4.8); LYMPHOCYTES % (AUTO) 2.8 % (21-51); MEAN CORPUSCULAR HEMOGLOBIN 30.8 PG (27.0-31.0); MEAN CORPUSCULAR HGB CONC 33.2 g/dL (33.0-36.5); MEAN CORPUSCULAR VOLUME 92.6 FL (78-98); MEAN PLATELET VOLUME 8.3 FL (7.4-10.4); MONOCYTES # (AUTO) 0.6 X10'3 (0-0.9); MONOCYTES % (AUTO) 5.4 % (2-12); NEUTROPHILS # (AUTO) 10.6 X10'3 (1.8-7.7); NEUTROPHILS % (AUTO) 91.7 % (42-75); PLATELET COUNT 139 X10'3 (140-440); RED BLOOD COUNT 3.45 X10'6 (4.70-6.10); RED CELL DISTRIBUTION WIDTH 15.3 % (11.5-14.5); WHITE BLOOD COUNT 11.6 X10'3 (4.5-11.0)
[2021-03-26] MEDS: morphine 4 MG/ML inj SYRINge IV PRN ×2 (04:31→20:34)
[2021-03-26 04:53] LABS: ANION GAP 6 (8-16); BLOOD UREA NITROGEN 33 MG/DL (7-18); BUN/CREATININE RATIO 24.3 (5.4-32.0); CALCIUM 8.3 MG/DL (8.5-10.1); CHLORIDE 104 MMOL/L (99-107); CREATININE 1.36 MG/DL (0.60-1.10); GLUCOSE 149 MG/DL (70-104); MAGNESIUM 2.2 MG/DL (1.5-2.4); PHOSPHORUS 4.4 MG/DL (2.3-4.5); POTASSIUM 5.1 MMOL/L (3.5-5.1); SODIUM 139 MMOL/L (135-145); TOTAL CARBON DIOXIDE 28.9 MMOL/L (24-32); eGFR 51 ML/MIN
[2021-03-26] MEDS: sod chloride 0.9% 10ml flush syringe IV SCH ×3 (06:21→20:00)
[2021-03-26] MEDS: HYDROchlorothiazide 12.5mg capsule PO SCH (08:12)
[2021-03-26] MEDS: mupirocin 2% nasal ointment 1gm UD NS SCH (08:12)
[2021-03-26] MEDS: pantoprazole 40mg Tablet.DR PO SCH (08:13)
[2021-03-26] MEDS: metoprolol tartrate 12.5mg (1/2 tablet) PO SCH ×2 (08:13→20:36)
[2021-03-26] MEDS: sennosides/docusate sodium tablet PO SCH ×2 (08:14→20:37)
[2021-03-26] MEDS: buPROPion SR 150mg tablet PO SCH ×2 (08:14→20:37)
[2021-03-26] MEDS: gabapentin 300mg capsule PO SCH (08:14)
[2021-03-26] MEDS: aspirin 325mg tablet PO SCH (08:14)
[2021-03-26] MEDS: sodium chloride 0.45% 1,000 ML IV SCH ×2 (09:50→16:17)
[2021-03-26] MEDS ORDERED: furosemide 40mg/4ml inj IV ONE (10:15)
[2021-03-26] MEDS: Melatonin 3mg tablet PO SCH (20:36)
[2021-03-26] MEDS: tamsulosin 0.4mg capsule PO SCH (20:37)
[2021-03-26] MEDS: atorvastatin 10mg tablet PO SCH (20:37)
[2021-03-27] VITALS (14 sets, daily range): BP systolic 91–139; BP diastolic 48–67
[2021-03-27] MEDS: morphine 4 MG/ML inj SYRINge IV PRN (02:25)
[2021-03-27 03:53] LABS: BASOPHILS % (AUTO) 0.1 % (0-1); EOSINOPHILS % (AUTO) 0.2 % (0-6); HEMATOCRIT 31.9 % (42.0-52.0); HEMOGLOBIN 10.7 g/dl (14.0-17.9); LYMPHOCYTES # (AUTO) 0.7 X10'3 (1.1-4.8); LYMPHOCYTES % (AUTO) 7.7 % (21-51); MEAN CORPUSCULAR HEMOGLOBIN 31.1 PG (27.0-31.0); MEAN CORPUSCULAR HGB CONC 33.6 g/dL (33.0-36.5); MEAN CORPUSCULAR VOLUME 92.4 FL (78-98); MEAN PLATELET VOLUME 8.8 FL (7.4-10.4); MONOCYTES # (AUTO) 1.1 X10'3 (0-0.9); NEUTROPHILS # (AUTO) 7.1 X10'3 (1.8-7.7); PLATELET COUNT 140 X10'3 (140-440); RED BLOOD COUNT 3.46 X10'6 (4.70-6.10); RED CELL DISTRIBUTION WIDTH 15.2 % (11.5-14.5); WHITE BLOOD COUNT 8.8 X10'3 (4.5-11.0)
[2021-03-27 04:19] LABS: ALBUMIN 2.7 G/DL (3.4-5.0); ANION GAP 7 (8-16); BLOOD UREA NITROGEN 43 MG/DL (7-18); BUN/CREATININE RATIO 35.5 (5.4-32.0); CALCIUM 8.3 MG/DL (8.5-10.1); CHLORIDE 104 MMOL/L (99-107); CREATININE 1.21 MG/DL (0.60-1.10); GLUCOSE 116 MG/DL (70-104); MAGNESIUM 2.1 MG/DL (1.5-2.4); PHOSPHORUS 3.3 MG/DL (2.3-4.5); POTASSIUM 4.4 MMOL/L (3.5-5.1); SODIUM 143 MMOL/L (135-145); TOTAL CARBON DIOXIDE 32.2 MMOL/L (24-32); eGFR 59 ML/MIN
[2021-03-27] MEDS: potassium Cl 20 mEq SR tablet PO SCH ×2 (08:00→19:46)
[2021-03-27] MEDS: magnesium Cl slow-release 64mg tablet PO SCH ×2 (08:00→20:37)
[2021-03-27] MEDS ORDERED: potassium Cl 40MEQ/250ML bag 250 ML IV PRN (08:00)
[2021-03-27] MEDS ORDERED: magnesium 2GM in 50ml NS 50 ML IV PRN (08:00)
[2021-03-27] MEDS ORDERED: potassium Cl 20mEq/100mL bag 100 ML IV PRN (08:00)
[2021-03-27] MEDS ORDERED: potassium CL 10mEq/100ml bag 100 ML IV PRN (08:00)
[2021-03-27] MEDS ORDERED: magnesium 4gm in 100ml NS 100 ML IV PRN (08:00)
[2021-03-27] MEDS ORDERED: potassium Cl 20 mEq SR tablet PO PRN (08:00)
[2021-03-27] MEDS ORDERED: potassium Cl 40MEQ/1/2NS 520ml 520 ML IV PRN (08:00)
[2021-03-27] MEDS: aspirin 325mg tablet PO SCH (09:58)
[2021-03-27] MEDS: buPROPion SR 150mg tablet PO SCH ×2 (09:58→19:51)
[2021-03-27] MEDS: sennosides/docusate sodium tablet PO SCH ×2 (09:59→19:45)
[2021-03-27] MEDS: HYDROchlorothiazide 12.5mg capsule PO SCH (09:59)
[2021-03-27] MEDS: pantoprazole 40mg Tablet.DR PO SCH (09:59)
[2021-03-27] MEDS: metoprolol tartrate 12.5mg (1/2 tablet) PO SCH ×2 (10:02→19:47)
[2021-03-27] MEDS: HYDROcodone/acetaminophen 10/325mg tab PO PRN ×2 (10:12→19:47)
--- NOTE | 2021-03-27 13:22 | NUR ---
Initial: Pt s/p CABG x 3 03/24, provided pt and family w/ written and verbal CAGB nutrition therapy education w/ RD contact info. Pt currently on Regular/NCS diet w/ 100% intake of meals meeting needs. LBM 03/24 receiving routine Senna. No nutrition intervention implemented at this time, will continue to monitor. Recs: 1. Continue Regular/NCS diet as tolerated 2. Bowel care per rx 3. Weekly wts Addendum: 03/27/21 at [address] Amended: Links added.
--- NOTE | 2021-03-27 16:10 | NUR ---
ASSESSED PT FOR PAIN, PT RESTING COMFORTABLY, NO S/S OF DISTRESS. EVEN BREATHING.
--- NOTE | 2021-03-27 18:38 | NUR ---
PT'S IJ REMOVED WITH TIP INTACT. PROCEDURE TOLERATED WELL BY PT.
--- NOTE | 2021-03-27 18:39 | NUR ---
Problems reprioritized. Patient report given, questions answered & plan of care reviewed with CLAUDE MATTA.
[2021-03-27] MEDS: sod chloride 0.9% 10ml flush syringe IV SCH ×2 (20:00→20:38)
[2021-03-27] MEDS: Melatonin 3mg tablet PO SCH (20:32)
[2021-03-27] MEDS: tamsulosin 0.4mg capsule PO SCH (20:32)
[2021-03-27] MEDS: atorvastatin 10mg tablet PO SCH (20:33)
[2021-03-28 02:00] VITALS: BP 86/53
[2021-03-28 06:00] VITALS: BP 106/61
[2021-03-28 06:14] LABS: BASOPHILS % (AUTO) 0.5 % (0-1); EOSINOPHILS # (AUTO) 0.5 X10'3 (0-0.9); HEMATOCRIT 32.3 % (42.0-52.0); HEMOGLOBIN 11.1 g/dl (14.0-17.9); LYMPHOCYTES # (AUTO) 1.2 X10'3 (1.1-4.8); LYMPHOCYTES % (AUTO) 14.9 % (21-51); MEAN CORPUSCULAR HEMOGLOBIN 31.3 PG (27.0-31.0); MEAN CORPUSCULAR HGB CONC 34.3 g/dL (33.0-36.5); MEAN CORPUSCULAR VOLUME 91.3 FL (78-98); MEAN PLATELET VOLUME 8.5 FL (7.4-10.4); MONOCYTES # (AUTO) 0.8 X10'3 (0-0.9); MONOCYTES % (AUTO) 10.8 % (2-12); NEUTROPHILS # (AUTO) 5.2 X10'3 (1.8-7.7); NEUTROPHILS % (AUTO) 67.8 % (42-75); PLATELET COUNT 157 X10'3 (140-440); RED BLOOD COUNT 3.54 X10'6 (4.70-6.10); WHITE BLOOD COUNT 7.7 X10'3 (4.5-11.0)
[2021-03-28 06:24] LABS: ALBUMIN 2.6 G/DL (3.4-5.0); ANION GAP 6 (8-16); BLOOD UREA NITROGEN 41 MG/DL (7-18); BUN/CREATININE RATIO 39.8 (5.4-32.0); CALCIUM 8.3 MG/DL (8.5-10.1); CHLORIDE 106 MMOL/L (99-107); CREATININE 1.03 MG/DL (0.60-1.10); GLUCOSE 101 MG/DL (70-104); POTASSIUM 3.9 MMOL/L (3.5-5.1); SODIUM 144 MMOL/L (135-145); TOTAL CARBON DIOXIDE 32.2 MMOL/L (24-32); eGFR 71 ML/MIN
--- NOTE | 2021-03-28 06:29 | NUR ---
Problems reprioritized. Patient report given, questions answered & plan of care reviewed with Maria Elena ARCE .
--- NOTE | 2021-03-28 06:34 | NUR ---
Patient in room PCU 3010. I have received report from Julita ARCE and had the opportunity to ask questions and assume patient care.
[2021-03-28 06:46] LABS: ISTAT HGB ART 8.8 g/dl (14.0-18.0); ISTAT Hct ART 26 %PCV (42-52); ISTAT O2 SATURATION ARTERIAL 99 % (95-98); ISTAT SOURCE BLNK
[2021-03-28 06:47] LABS: ISTAT HGB ART 7.8 g/dl (14.0-18.0); ISTAT Hct ART 23 %PCV (42-52); ISTAT O2 SATURATION ARTERIAL 100 % (95-98); ISTAT SOURCE BLNK
[2021-03-28 06:48] LABS: ISTAT Hct MIX 22 %PCV (42-52); ISTAT O2 SATURATION MIX VENOUS 74 % (60-80); ISTAT SOURCE BLNK
[2021-03-28 06:48] LABS: ISTAT HGB ART 7.5 g/dl (14.0-18.0); ISTAT Hct ART 22 %PCV (42-52); ISTAT O2 SATURATION ARTERIAL 100 % (95-98); ISTAT SOURCE BLNK
[2021-03-28] MEDS: HYDROcodone/acetaminophen 10/325mg tab PO PRN ×3 (06:58→20:27)
[2021-03-28] MEDS: buPROPion SR 150mg tablet PO SCH ×2 (07:44→20:27)
[2021-03-28] MEDS: potassium Cl 20 mEq SR tablet PO SCH ×2 (07:45→20:25)
[2021-03-28] MEDS: metoprolol tartrate 12.5mg (1/2 tablet) PO SCH ×2 (07:45→20:24)
[2021-03-28] MEDS: HYDROchlorothiazide 12.5mg capsule PO SCH (07:46)
[2021-03-28] MEDS: aspirin 325mg tablet PO SCH (07:46)
[2021-03-28] MEDS: pantoprazole 40mg Tablet.DR PO SCH (07:46)
[2021-03-28] MEDS: sennosides/docusate sodium tablet PO SCH ×2 (07:46→20:25)
[2021-03-28] MEDS: magnesium Cl slow-release 64mg tablet PO SCH ×2 (07:46→20:24)
[2021-03-28] MEDS: sod chloride 0.9% 10ml flush syringe IV SCH ×2 (08:00→20:34)
[2021-03-28 11:00] VITALS: BP 100/51
[2021-03-28] MEDS ORDERED: LOP12.5T PO (11:19)
--- NOTE | 2021-03-28 11:51 | NUR ---
O2 Sat at rest on room air:__90_% If below 89%: Recovery O2 Sat at rest on ___LPM:___%:___% via (mask/nasal cannula, etc..) No further documentation is necessary. If O2 Sat did not drop below 89% on room air,ambulate patient on room air. O2 Sat while ambulating on room air:__87_% Recovery O2 Sat while ambulating on _2__LPM:_94__% No further documentation is necessary. If patient does not drop below 89% while ambulating, he/she does not qualify for home O2.
--- NOTE | 2021-03-28 13:05 | NUR ---
REVIEW AND AGREE WITH AM ASSESSMENT BY VON ARCE.
[2021-03-28 15:00] VITALS: BP 120/68
[2021-03-28 18:00] VITALS: BP 109/59
[2021-03-28] MEDS: Melatonin 3mg tablet PO SCH (20:29)
[2021-03-28] MEDS: tamsulosin 0.4mg capsule PO SCH (20:30)
[2021-03-28] MEDS: atorvastatin 10mg tablet PO SCH (20:33)
[2021-03-28 22:00] VITALS: BP 110/60
[2021-03-29 02:00] VITALS: BP 104/59
--- NOTE | 2021-03-29 06:16 | NUR ---
Problems reprioritized. Patient report given, questions answered & plan of care reviewed with Corina ARCE .
--- NOTE | 2021-03-29 06:30 | NUR ---
Patient in room PCU 3010. I have received report from Julita ARCE and had the opportunity to ask questions and assume patient care. Pt semi fowlers in bed, chest rising and falling evenly. safety measures in place. no s/sx acute distress. pt gently holding heart shaped pillow while sleeping.
[2021-03-29 07:00] VITALS: BP 96/64
[2021-03-29 07:33] LABS: BASOPHILS % (AUTO) 0.5 % (0-1); EOSINOPHILS # (AUTO) 0.6 X10'3 (0-0.9); EOSINOPHILS % (AUTO) 8.3 % (0-6); HEMATOCRIT 32.8 % (42.0-52.0); LYMPHOCYTES # (AUTO) 1.1 X10'3 (1.1-4.8); LYMPHOCYTES % (AUTO) 14.5 % (21-51); MEAN CORPUSCULAR HEMOGLOBIN 30.7 PG (27.0-31.0); MEAN CORPUSCULAR HGB CONC 33.4 g/dL (33.0-36.5); MEAN CORPUSCULAR VOLUME 91.9 FL (78-98); MEAN PLATELET VOLUME 8.3 FL (7.4-10.4); MONOCYTES # (AUTO) 0.9 X10'3 (0-0.9); MONOCYTES % (AUTO) 11.9 % (2-12); NEUTROPHILS # (AUTO) 5.1 X10'3 (1.8-7.7); NEUTROPHILS % (AUTO) 64.8 % (42-75); PLATELET COUNT 176 X10'3 (140-440); RED BLOOD COUNT 3.57 X10'6 (4.70-6.10); RED CELL DISTRIBUTION WIDTH 15.4 % (11.5-14.5); WHITE BLOOD COUNT 7.8 X10'3 (4.5-11.0)
[2021-03-29 07:54] LABS: ALBUMIN 2.5 G/DL (3.4-5.0); ANION GAP 4 (8-16); BLOOD UREA NITROGEN 33 MG/DL (7-18); BUN/CREATININE RATIO 28.2 (5.4-32.0); CALCIUM 8.6 MG/DL (8.5-10.1); CHLORIDE 105 MMOL/L (99-107); CREATININE 1.17 MG/DL (0.60-1.10); GLUCOSE 99 MG/DL (70-104); POTASSIUM 4.1 MMOL/L (3.5-5.1); SODIUM 143 MMOL/L (135-145); TOTAL CARBON DIOXIDE 33.7 MMOL/L (24-32); eGFR 61 ML/MIN
[2021-03-29] MEDS: sennosides/docusate sodium tablet PO SCH (08:09)
[2021-03-29] MEDS: magnesium Cl slow-release 64mg tablet PO SCH (08:09)
[2021-03-29] MEDS: potassium Cl 20 mEq SR tablet PO SCH (08:09)
[2021-03-29] MEDS: buPROPion SR 150mg tablet PO SCH (08:09)
[2021-03-29] MEDS: pantoprazole 40mg Tablet.DR PO SCH (08:09)
[2021-03-29] MEDS: metoprolol tartrate 12.5mg (1/2 tablet) PO SCH (08:10)
[2021-03-29] MEDS: HYDROchlorothiazide 12.5mg capsule PO SCH (08:10)
[2021-03-29] MEDS: aspirin 325mg tablet PO SCH (08:10)
[2021-03-29] MEDS: sod chloride 0.9% 10ml flush syringe IV SCH (08:12)
[2021-03-29 11:00] VITALS: BP 117/54
--- NOTE | 2021-03-29 13:45 | NUR ---
Pt stable for discharge per MD orders. All discharge instructions explained, all questions answered. follow up appoint schedule with office numbers provided for pt. per pt, he will call for the two week follow up with the surgeon. nurses attempts to reach a live person to schedule follow up not successful. Pt readily verbalized understanding and intent to follow up. [facility] [place]. PIV discontinued. cannula intact. teletypesetter monitor discontinued. all pt belongings collected and sent with pt. pt wheeled to the [employer] where he left in a cab, [place]. pt left with FWW and portable oxygen. pt left without s/sx acute distress.
== END 2021-03-29 13:45 | disposition home health service (06) | DRG 234 ==
LOC: SSTAY O 06:56 → PCU 3S 11:35 → ED HOLD 03-24 02:28 → PCU 3S 03-24 02:43 → ICU 2S 03-24 09:43 → PCU 3S 03-27 12:47
PROVIDERS: ADMIT Internal Medicine Cardiovascular Disease; ATTEND Thoracic Surgery (Cardiothoracic Vascular Surgery)
PROC: 4A023N8 Measurement of Cardiac Sampling and Pressure, Bilateral, Percutaneous Approach (ICD-10-PCS; principal; 2021-03-23)
PROC: B2111ZZ Fluoroscopy of Multiple Coronary Arteries using Low Osmolar Contrast (ICD-10-PCS; 2021-03-23)
PROC: B2151ZZ Fluoroscopy of Left Heart using Low Osmolar Contrast (ICD-10-PCS; 2021-03-23)
PROC: B3101ZZ Fluoroscopy of Thoracic Aorta using Low Osmolar Contrast (ICD-10-PCS; 2021-03-23)
PROC: 02100Z9 Bypass Coronary Artery, One Artery from Left Internal Mammary, Open Approach (ICD-10-PCS; 2021-03-24)
PROC: 021109W Bypass Coronary Artery, Two Arteries from Aorta with Autologous Venous Tissue, Open Approach (ICD-10-PCS; 2021-03-24)
PROC: 06BP4ZZ Excision of Right Saphenous Vein, Percutaneous Endoscopic Approach (ICD-10-PCS; 2021-03-24)
PROC: B24BZZ4 Ultrasonography of Heart with Aorta, Transesophageal (ICD-10-PCS; 2021-03-24)
PROC: 5A1221Z Performance of Cardiac Output, Continuous (ICD-10-PCS; 2021-03-24)
DX: I25.110 Atherosclerotic heart disease of native coronary artery with unstable angina pectoris (principal); I65.23 Occlusion and stenosis of bilateral carotid arteries; E78.5 Hyperlipidemia, unspecified; F12.90 Cannabis use, unspecified, uncomplicated; F17.210 Nicotine dependence, cigarettes, uncomplicated; F32.A Depression, unspecified; F41.9 Anxiety disorder, unspecified; Z60.2 Problems related to living alone; G89.29 Other chronic pain; I73.9 Peripheral vascular disease, unspecified; I12.9 Hypertensive chronic kidney disease with stage 1 through stage 4 chronic kidney disease, or unspecified chronic kidney disease; M54.9 Dorsalgia, unspecified; E87.70 Fluid overload, unspecified; J44.9 Chronic obstructive pulmonary disease, unspecified; M10.9 Gout, unspecified; N18.9 Chronic kidney disease, unspecified; Z82.49 Family history of ischemic heart disease and other diseases of the circulatory system; Z85.828 Personal history of other malignant neoplasm of skin; Z86.73 Personal history of transient ischemic attack (TIA), and cerebral infarction without residual deficits; Z79.899 Other long term (current) drug therapy; Z79.82 Long term (current) use of aspirin; Z71.6 Tobacco abuse counseling
CPT/HCPCS: 36415; 36600; 71045; 71046; 76937; 80048; 80053; 82330; 82435; 82800; 82803; 82947; 82948; 83036; 83735; 84100; 84132; 84295; 85014; 85018; 85025; 85347; 85384; 85610; 85730; 86885; 86900; 86901; 86920; 87081; 93005; 93312; 93325; 93460; 93567; 93880; 93970; 94002; 94060; 94640; 94760; 97116; 97161; 97530; 99152; 99153; A4618; A4620; A5120; A6258; A6449; A7000; A7048; C1751; C1769; C1894; C9113; G0378; J0131; J0171; J0690; J1250; J1265; J1644; J1815; J1940; J2001; J2060; J2150; J2250; J2270; J2370; J2440; J2704; J2930; J3010; J3370; J3475; J3480; J3490; J7030; J7040; J7050; J7120; P9045; P9047; Q0163; Q9967

== ENCOUNTER 2021-04-27 13:00 | Outpatient (CLI) | payer MEDICARE, OTHER ==
[~2021-04-27 13:00] MED LIST: ASPI-10 PO; ATOR-2 PO; BUPR300T86 PO; FEXO-25 PO; FLO0.4C PO; HYDR-3964 PO; HYDR12.55 PO; LOP12.5T PO; MELA10TA PO
== END 2021-04-27 23:59 | disposition home or self-care (01) ==
LOC: 64 CT 13:00
PROVIDERS: ATTEND Thoracic Surgery (Cardiothoracic Vascular Surgery)
DX: J43.9 Emphysema, unspecified (principal); J84.10 Pulmonary fibrosis, unspecified; R59.0 Localized enlarged lymph nodes; I70.0 Atherosclerosis of aorta; I70.8 Atherosclerosis of other arteries; I08.0 Rheumatic disorders of both mitral and aortic valves; I25.10 Atherosclerotic heart disease of native coronary artery without angina pectoris; J47.9 Bronchiectasis, uncomplicated
CPT/HCPCS: 71250

== ENCOUNTER 2023-01-25 15:54 | Emergency (ER) | payer BC, MEDICARE, OTHER ==
[~2023-01-25] VITALS: Ht 170.2 cm; Wt 60.5 kg
[~2023-01-25 15:54] MED LIST changes: -MELA10TA PO; +MELATONIN10 MG PO
[2023-01-25 17:05] LABS: BASOPHILS % (AUTO) 0.4 % (0-1); EOSINOPHILS # (AUTO) 0.5 X10'3 (0-0.9); EOSINOPHILS % (AUTO) 5.7 % (0-6); HEMATOCRIT 37.2 % (42.0-52.0); HEMOGLOBIN 12.2 g/dl (14.0-17.9); LYMPHOCYTES # (AUTO) 1.3 X10'3 (1.1-4.8); LYMPHOCYTES % (AUTO) 15.1 % (21-51); MEAN CORPUSCULAR HEMOGLOBIN 31.3 PG (27.0-31.0); MEAN CORPUSCULAR HGB CONC 32.7 g/dL (33.0-36.5); MEAN CORPUSCULAR VOLUME 95.8 FL (78-98); MEAN PLATELET VOLUME 8.2 FL (7.4-10.4); MONOCYTES # (AUTO) 0.6 X10'3 (0-0.9); MONOCYTES % (AUTO) 7.1 % (2-12); NEUTROPHILS # (AUTO) 6.3 X10'3 (1.8-7.7); NEUTROPHILS % (AUTO) 71.7 % (42-75); PLATELET COUNT 201 X10'3 (140-440); RED BLOOD COUNT 3.88 X10'6 (4.70-6.10); WHITE BLOOD COUNT 8.8 X10'3 (4.5-11.0)
[2023-01-25 17:23] LABS: ALANINE AMINOTRANSFERASE 28 U/L (12-78); ALBUMIN/GLOBULIN RATIO 0.8 (1.1-1.5); ALKALINE PHOSPHATASE 83 IU/L (46-116); ANION GAP 6 (8-16); ASPARTATE AMINO TRANSFERASE 27 U/L (10-37); BILIRUBIN,TOTAL 0.4 MG/DL (0.1-1.0); BLOOD UREA NITROGEN 38 MG/DL (7-18); BUN/CREATININE RATIO 22.4 (10.0-20.0); CHLORIDE 103 MMOL/L (99-107); GLUCOSE 128 MG/DL (70-104); LIPASE 52 U/L (73-393); POTASSIUM 4.4 MMOL/L (3.5-5.1); PRO BRAIN NATRIURETIC PEPTIDE 1227 PG/ML (0-450); SODIUM 138 MMOL/L (135-145); TOTAL CARBON DIOXIDE 28.6 MMOL/L (24-32); eCRCL 32 ML/MIN; eGFR 39 ML/MIN
[2023-01-25 20:29] LABS: BILIRUBIN,URINE NEGATIVE (Neg); COLOR,URINE YELLOW (Yellow); GLUCOSE, URINE NEGATIVE (Neg); KETONES,URINE NEGATIVE (Neg); LEUKOCYTE ESTERASE ,URINE NEGATIVE (Neg); NITRITES, URINE NEGATIVE (Neg); OCCULT BLOOD,URINE NEGATIVE (Neg); PROTEIN,URINE NEGATIVE (Neg); UROBILINOGEN,URINE 0.2 E.U/dL (0.2-1.0)
[2023-01-25 20:37] LABS: CLARITY,URINE SLIGHTLY CLOUDY (Clear); UA COLLECTION TYPE CLN CATCH MIDSTREAM
[2023-01-25 20:38] LABS: WBC,URINE 0-4 /HPF (0-4)
[2023-01-25 20:39] LABS: BACTERIA,URINE FEW /HPF (Neg); SQUAMOUS EPITHELIAL CELL,UR FEW /LPF (FEW); TRANSITIONAL EPI CELLS,URINE FEW /HPF
[2023-01-26] MEDS ORDERED: iohexol 350MG/ML 100ml bottle IV ONE (06:16)
[2023-01-26 07:17] VITALS: BP 157/83; PULSE 75; RESP 12; TEMP 97.7; O2SAT 93
--- NOTE | 2023-01-26 10:47 | NUR ---
BILATERAL PEDAL PULSES THREADY BUT FOUND.
[2023-01-26 11:43] LABS: OCCULT BLOOD STOOL NEGATIVE (Neg)
== END 2023-01-26 12:17 | disposition home or self-care (01) ==
LOC: ER 15:55
DX: M48.061 Spinal stenosis, lumbar region without neurogenic claudication (principal); I10 Essential (primary) hypertension; F12.90 Cannabis use, unspecified, uncomplicated; Z79.82 Long term (current) use of aspirin; Z79.899 Other long term (current) drug therapy
CPT/HCPCS: 36415; 71045; 72100; 74174; 80053; 81001; 82272; 83690; 83880; 84484; 85025; 93005; 99285; J3490; Q9967

== ENCOUNTER 2023-07-24 05:25 | Outpatient (CLI) | payer BC ==
[~2023-07-24 05:25] MED LIST changes: +BUPR-564 PO; -BUPR300T86 PO
== END 2023-07-24 23:59 | disposition home or self-care (01) ==
LOC: RT 05:25
PROVIDERS: ATTEND Internal Medicine Critical Care Medicine
DX: J44.9 Chronic obstructive pulmonary disease, unspecified (principal)
CPT/HCPCS: 94618

== ENCOUNTER 2024-04-04 10:23 | Day surgery (SDC) | payer BC ==
[2024-04-03 13:23] LABS: BASOPHILS % (AUTO) 0.6 % (0-1); EOSINOPHILS # (AUTO) 0.6 X10'3 (0-0.9); EOSINOPHILS % (AUTO) 7.2 % (0-6); HEMATOCRIT 37.9 % (42.0-52.0); HEMOGLOBIN 12.5 g/dl (14.0-17.9); LYMPHOCYTES # (AUTO) 0.9 X10'3 (1.1-4.8); LYMPHOCYTES % (AUTO) 11.2 % (21-51); MEAN CORPUSCULAR HGB CONC 33.1 g/dL (33.0-36.5); MEAN CORPUSCULAR VOLUME 93.6 FL (78-98); MONOCYTES # (AUTO) 0.7 X10'3 (0-0.9); MONOCYTES % (AUTO) 9.2 % (2-12); NEUTROPHILS # (AUTO) 5.5 X10'3 (1.8-7.7); NEUTROPHILS % (AUTO) 71.8 % (42-75); PLATELET COUNT 187 X10'3 (140-440); RED BLOOD COUNT 4.05 X10'6 (4.70-6.10); RED CELL DISTRIBUTION WIDTH 15.3 % (11.5-14.5); WHITE BLOOD COUNT 7.7 X10'3 (4.5-11.0)
[2024-04-03 13:35] LABS: ALBUMIN 3.3 G/DL (3.4-5.0); ANION GAP 7 (8-16); BLOOD UREA NITROGEN 22 MG/DL (7-18); BUN/CREATININE RATIO 15.7 (10.0-20.0); CALCIUM 8.9 MG/DL (8.5-10.1); CHLORIDE 105 MMOL/L (99-107); GLUCOSE 114 MG/DL (70-104); POTASSIUM 4.6 MMOL/L (3.5-5.1); SODIUM 141 MMOL/L (135-145); TOTAL CARBON DIOXIDE 29.3 MMOL/L (24-32); eGFR 49 ML/MIN
[2024-04-03 13:38] LABS: APTT 29 SECONDS (22-32); PROTHROMBIN TIME 10.9 SECONDS (9.0-12.0)
[~2024-04-04] VITALS: Ht 170.2 cm; Wt 70.1 kg
[2024-04-04] VITALS (10 sets, daily range): BP systolic 113–145; BP diastolic 58–76; PULSE 61–71; RESP 12–15; O2SAT 94–97
[~2024-04-04 10:23] MED LIST changes: +ACET-1008 PO; +ALBU8HFA INH; -ASPI-10 PO; +ASPI-1071 PO; +DONE5TAB7 PO; +EMPA10TA PO; -FEXO-25 PO; +FOLI1TAB27 PO; +GABA-530 PO; -HYDR-3964 PO; -HYDR12.55 PO; -LOP12.5T PO; -MELATONIN10 MG PO; +MIRT-87 PO; +MULT-1085 PO; +NITR0.4T51 SL
[2024-04-04] MEDS ORDERED: CARV3.122 PO (11:07)
[2024-04-04] MEDS ORDERED: LOSA25TA41 PO (11:07)
[2024-04-04] MEDS ORDERED: FURO20TA4 (11:10)
[2024-04-04] MEDS ORDERED: ASPI-1264 PO (11:10)
[2024-04-04] MEDS ORDERED: iohexol 350 MG/ML 50ML vial IV ONE (11:43)
[2024-04-04] MEDS ORDERED: nitroGLYCERIN 500mcg/5mL D5W 5 ML IV ONE (11:43)
[2024-04-04] MEDS ORDERED: heparin 1,000unit/ml 10ml vial 10 ML ONE (11:43)
[2024-04-04] MEDS ORDERED: iohexol 350MG/ML 100ml bottle IV ONE (11:43)
[2024-04-04] MEDS ORDERED: LIDOcaine 1% 30ml preserv. free vial ONE (11:43)
[2024-04-04] MEDS ORDERED: fentaNYL/PF 50MCG/1 ML 2ML syringe ONE (11:56)
[2024-04-04] MEDS ORDERED: midazolam 1 mg/ML 2ml injection ONE (11:56)
[2024-04-04] MEDS ORDERED: verapamil 2.5 mg/ml inj IV ONE (11:59)
[2024-04-04] MEDS: sodium bicarbonate 1meq/ml syr 150 ML in dextrose 5%-water 1,000 ML IV ONE (12:06)
[2024-04-04] MEDS: acetylcysteine 200 MG/ml 4ml vial PO PRN (12:06)
[2024-04-04] MEDS: LORazepam 0.5 MG tablet PO PRN (12:06)
[2024-04-04] MEDS: diphenhydrAMINE 25mg capsule PO PRN (12:06)
[2024-04-04] MEDS: normal saline 1,000 ML IV SCH (12:06)
[2024-04-04 13:45] LABS: ISTAT HGB ART 11.9 g/dl (14.0-17.9); ISTAT Hct ART 35 %PCV (42-52); ISTAT O2 SATURATION ARTERIAL 99 % (95-98); ISTAT SOURCE ART
[2024-04-04] MEDS: HYDROcodone/acetaminophen 10/325mg tab PO ONE (16:15)
[2024-04-07 09:22] LABS: ISTAT HGB MIX 11.6 g/dl (14.0-17.9); ISTAT Hct MIX 34 %PCV (42-52); ISTAT O2 SATURATION MIX VENOUS 62 % (60-80); ISTAT SOURCE VEN
== END 2024-04-04 19:10 | disposition home or self-care (01) ==
LOC: SSTAY O 10:23
PROVIDERS: ATTEND Internal Medicine Cardiovascular Disease
DX: R94.39 Abnormal result of other cardiovascular function study (principal); I25.119 Atherosclerotic heart disease of native coronary artery with unspecified angina pectoris; I44.4 Left anterior fascicular block; R94.31 Abnormal electrocardiogram [ECG] [EKG]; I13.0 Hypertensive heart and chronic kidney disease with heart failure and stage 1 through stage 4 chronic kidney disease, or unspecified chronic kidney disease; N18.9 Chronic kidney disease, unspecified; I50.22 Chronic systolic (congestive) heart failure; J44.9 Chronic obstructive pulmonary disease, unspecified; E78.5 Hyperlipidemia, unspecified; I73.9 Peripheral vascular disease, unspecified; M10.9 Gout, unspecified; F41.9 Anxiety disorder, unspecified; F32.A Depression, unspecified; F17.200 Nicotine dependence, unspecified, uncomplicated; I42.9 Cardiomyopathy, unspecified; Z79.82 Long term (current) use of aspirin; Z79.899 Other long term (current) drug therapy; Z90.89 Acquired absence of other organs; Z95.1 Presence of aortocoronary bypass graft; Z98.890 Other specified postprocedural states; Z82.49 Family history of ischemic heart disease and other diseases of the circulatory system
CPT/HCPCS: 36415; 80048; 82803; 85014; 85025; 85610; 85730; 93005; 93461; 99152; 99153; J1644; J2003; J2250; J3010; J3490; J7030; J7070; Q0163; Q9967; 93459; A4615; A6258; A6402; C1725; C1751; C1760; C1769; C1894